=== PATIENT | male | born 1990 | race Caucasian/White ===

== ENCOUNTER 2025-04-02 15:20 | Emergency (ER) | payer OTHER, SELFPAY ==
[2025-04-02 15:25] VITALS: BP 152/93
[2025-04-02 15:43] LABS: % Basophils 0.6 % (0-2); % Eosinophils 1.6 % (0-6); % Immature Granulocytes 0.2 % (0-0.5); % Lymphocytes 24.2 % (20.5-51.1); % Neutrophils 66.4 % (42.2-75.2); Absolute Basophils 0.1 10^3/uL (0-0.2); Absolute Eosinophils 0.2 10^3/uL (0-0.7); Absolute Lymphocytes 2.4 10^3/uL (1.2-3.4); Absolute Monocytes 0.7 10^3/uL (0.1-0.6); Absolute Neutrophils 6.7 10^3/uL (1.4-6.5); Hematocrit 41.9 % (39.0-52.0); Hemoglobin 14.2 g/dL (13.0-18.0); Mean Corp Hgb Conc. 33.9 g/dL (33.0-37.0); Mean Corpuscular Hgb 29.8 pg (27.0-31.0); Mean Corpuscular Volume 87.8 fL (80.0-94.0); Mean Platelet Volume 9.3 fL (7.4-10.4); Nucleated Red Blood Cells % 0 % (-); Platelet Count 338 10^3/uL (130-400); Red Blood Cell Count 4.77 10^6/uL (4.70-6.10); Red Cell Dist. Width 12.4 % (11.5-14.5); White Blood Cell Count 10.1 10^3/uL (4.8-10.8)
[2025-04-02 15:59] LABS: ALT (SGPT) 27 U/L (0-50); AST (SGOT) 19 U/L (17-59); Albumin 4.3 g/dl (3.5-5.0); Alkaline Phosphatase 73 U/L (38-126); Blood Urea Nitrogen 14 mg/dl (9-20); Calcium 9.7 mg/dl (8.4-10.2); Carbon Dioxide 27 mmol/L (22-30); Chloride 107 mmol/L (98-107); Glucose 106 mg/dl (70-99); Potassium 4.5 mmol/L (3.5-5.1); Sodium 142 mmol/L (135-145); Total Bilirubin 0.7 mg/dl (0.2-1.3); Total Protein 7.9 g/dl (6.3-8.2); eGFR > 60.00
[2025-04-02 16:04] LABS: Troponin I < 0.012 ng/ml
--- NOTE | 2025-04-02 16:58 | ED.GENMED ---
History of Present Illness
General
Chief Complaint: Chest Pain
Source: patient
Exam Limitations: none
Time Seen by Provider: 04/02/25 16:54
History of Present Illness
History of Present Illness:
35yoM with a history of obesity presenting for evaluation of chest pain. Patient reports left-sided chest discomfort that began at 9 AM this morning while he was at work. Patient works at a warehouse. He reports an intermittent throbbing pain.
Pain is worse with movement and coughing. He is otherwise asymptomatic and denies any shortness of breath, nausea, dizziness, syncope, leg swelling, calf pain. Patient's father from [place] in his mid 50s. He does not currently have a
PCP.
Phy Exam
General Physical Exam
General Presentation: well appearing and no apparent distress
General age: appears stated age
General Skin: warm and dry
General Habitus: normal
General Mental: alert
ENT Exam
ENT Exam: normocephalic
Cardiovascular Exam
Cardiovascular Exam: regular rate/rhythm, no edema and no murmur
Pulmonary Exam
Pulmonary Exam: lungs clear, no respiratory distress, no rales, no crackles, no rhonchi, no wheezing and other (+Mild L chest wall tenderness)
Neurological Exam
Neurological Exam: alert
[place] Coma Scale
Eye Opening: Spontaneous
Verbal Response: Oriented
Motor Response: Obeys Commands
GCS Total Score: 15
Skin Exam
Skin Exam: normal color and warm/dry
Psychiatric Exam
Psychiatric Exam: normal mood/affect
Scores
Heart Score for Chest Pain Patients
STEMI patient?: No
History: Slightly or Non-Suspicious
ECG: Normal
Age: </= 45 years
Risk Factors: 1 or 2 Risk Factors
Troponin: </= Normal Limit
Heart Score for Chest Pain Patients: 1
Heart Score Risk: 2.5% MACE over next 6 weeks
Course
Orders/Labs/Results
Orders:
Orders
04/02/25 15:21
Electrocardiogram (*1) Urgent
Reason for Study: Chest Pain
EKG- Treatment ONCE
04/02/25 15:32
Complete Blood Count/With Diff Urgent
Comprehensive Metabolic Panel Urgent
Troponin I Urgent
04/02/25 17:15
CR Chest - 2 Views Urgent
Comment:
Reason For Exam: CP
Abnormal Lab Results
04/02/25
15:32
Absolute Neuts (auto) 6.7 H 10^3/uL
(1.4-6.5)
Absolute Monos (auto) 0.7 H 10^3/uL
(0.1-0.6)
Glucose 106 H mg/dl
(70-99)
04/02/25 15:32
04/02/25 15:32
Vital Signs
Initial and Last Documented VS:
Initial Vital Signs
Temp Pulse Resp BP Pulse Ox
98.5 F 94 16 152/93 99
04/02/25 15:25 04/02/25 15:25 04/02/25 15:25 04/02/25 15:25 04/02/25 15:25
Last Documented Vital Signs
Temp Pulse Resp BP Pulse Ox
98.5 F 76 20 138/91 99
04/02/25 15:25 04/02/25 18:53 04/02/25 18:53 04/02/25 18:53 04/02/25 16:58
MDM/Problems Addressed
Differential Diagnosis Includes:
35yoM here with intermittent L throbbing chest pain since this morning. Worse with coughing/moving. Otherwise asymptomatic. He is mildly hypertensive with otherwise stable vitals. He is well-appearing in no acute distress. There is mild chest wall
tenderness on exam. Differential diagnosis includes but is not limited to: Musculoskeletal, pneumonia, pneumothorax, less likely ACS
EKG shows normal sinus rhythm without ischemic changes and troponin within normal limits. Remainder of labs unremarkable. Chest x-ray obtained which is normal. HEART score is 1. No indication for hospitalization. Unclear etiology of symptoms
although suspect musculoskeletal. Supportive care discussed. Advised f/u with PCP and ED return precautions reviewed. He was discharged in stable condition.
*Pulse Oximetry
SaO2: 99
Oxygen Mode of Delivery: Room air
Patient hypoxic: no (99%)
*EKG
Interpreted by ED Provider?: Yes
EKG Intrepretation Date: 04/02/25
Heart Rate: 81
Rate: normal
Rhythm: sinus
[place]: normal axis
Interval: normal interval
QRS Pattern: right bundle branch block (incomplete)
Ischemia: no ischemia
*Critical Care Note
Total Time (30-74mins, 75-104mins- exclusive of procedures): Not Applicable
Update Note
Update Note:
I was informed by waiting room staff that patient's came in after he was discharged and reported being unhappy with his care. I personally called and spoke with his over the phone and relayed test results and care plan. requesting
contact information for cardiology which was provided. All questions answered.
ED Attending Note
-
Portions of this chart may have been created with voice recognition software.� Occasional wrong word or��sound alike� substitutions may have occurred due to the inherent limitations of voice recognition software.
Discharge Plan
Departure
Patient Disposition: Home (Routine Discharge)
Date of Disposition: 04/02/25
Time of Disposition: 18:47
Patient with high blood pressure during this ER visit?: Yes
Discharge Problem:
Chest pain
Instructions: Chest Pain PCP Follow Up
Referrals:
[facility] [Provider Group]
NONE,* [Family Provider, Internal Medicine]
Activity Restrictions/Additional Instructions:
Please call tomorrow to schedule a follow-up with a family doctor. Return to the ER with any new or worsening symptoms.
Interventions
Interventions:
*Risk Screen - Suicide Last Done: 04/02/25 15:28
*General Assessment Last Done: 04/02/25 18:53
*Neglect/Abuse Screening Last Done: 04/02/25 15:28
*ED- Fall Risk Assessment Last Done: 04/02/25 18:53
*ED COVID-19 Vaccine History Last Done: 04/02/25 18:53
ED- Cardiac Assessment Last Done: 04/02/25 18:53
Discharge Date and Time
Print Language: AUSTR[place]
[2025-04-02 18:53] VITALS: BP 138/91
== END 2025-04-02 18:47 | disposition home or self-care (01) ==
LOC: EMR 15:20
PROVIDERS: Emergency Medicine; EMERGENCY PHYSICIAN Student in an Organized Health Care Education/Training Program
DX: R07.89 Other chest pain (principal); R03.0 Elevated blood-pressure reading, without diagnosis of hypertension; E66.9 Obesity, unspecified
CPT/HCPCS: 99285; 71046; 80053; 84484; 85025; 93005

== ENCOUNTER → 2025-07-12 14:02 | Outpatient (REF) | payer OTHER, SELFPAY | LOC: DHSLP 14:02 | PROVIDERS: ATTENDING PHYSICIAN Internal Medicine; FAMILY PHYSICIAN Student in an Organized Health Care Education/Training Program | DX: G47.33 Obstructive sleep apnea (adult) (pediatric) (principal) | CPT/HCPCS: 95800 ==